=== PATIENT | female | born 1965 | race Hispanic/Latino ===

== ENCOUNTER 2018-11-16 04:25 | Emergency (ER) | payer SELFPAY ==
[2018-11-16] MEDS ORDERED: ONDANSETRON ODT 4 MG TAB ONE (05:25)
[2018-11-16] MEDS ORDERED: HYDROCODONE/ACETAMINOPHEN 5/325 MG TAB ONE (05:25)
== END 2018-11-16 05:51 | disposition home or self-care (01) ==
LOC: EDH 04:25
DX: B02.9 Zoster without complications (principal); I10 Essential (primary) hypertension; E78.5 Hyperlipidemia, unspecified; E07.9 Disorder of thyroid, unspecified; Z72.0 Tobacco use